=== PATIENT | male | born 1985 | race Caucasian/White ===

== ENCOUNTER 2021-01-06 21:00 | Emergency (ER) | payer BC ==
[2021-01-06 21:24] VITALS: BP 145/75
--- NOTE | 2021-01-06 21:38 | ED General ---
General Stated Complaint: BUMP ON BACK OF LEG Source of Information: Patient Exam Limitations: No Limitations History of Present Illness Date Seen by Provider: Jan 06, 2021 Time Seen by Provider: 21:36 Initial Comments To ER with reports of a bump on the buttock. Is been there for about 4 or 5 days. It hurts to cough or sneeze or strain for a bowel movement. He thought it was a hemorrhoid. He had a fever up to 100.6 here. Timing/Duration: 1-2 Days Severity: Moderate Associated Systoms: Fever/Chills Allergies and Home Medications Allergies Coded Allergies: No Known Drug Allergies (Unverified , 01/06/21) Patient Home Medication List Home Medication List Reviewed: Yes Review of Systems Review of Systems Constitutional: see HPI EENTM: see HPI Respiratory: no symptoms reported Cardiovascular: no symptoms reported Genitourinary: no symptoms reported Musculoskeletal: no symptoms reported Skin: no symptoms reported Psychiatric/Neurological: No Symptoms Reported Hematologic/Lymphatic: No Symptoms Reported Immunological/Allergic: no symptoms reported Physical Exam Vital Signs Capillary Refill : Height, Weight, BMI Height: '" Weight: lbs. oz. kg; BMI Method: General Appearance: No Apparent Distress, WD/WN Eyes: Bilateral Eye Normal Inspection, Bilateral Eye PERRL, Bilateral Eye EOMI Respiratory: No Accessory Muscle Use, No Respiratory Distress Cardiovascular: Regular Rate, Rhythm, Normal Peripheral Pulses Gastrointestinal: Normal Bowel Sounds, Non Tender, Soft Genital/Rectal: Other (There is a left-sided perianal abscess) Extremity: Normal Capillary Refill, Normal Inspection Neurologic/Psychiatric: Alert, Oriented x3 Skin: Normal Color, Warm/Dry Progress/Results/Core Measures Suspected Sepsis SIRS Temperature: Pulse: Respiratory Rate: Laboratory Tests 01/06/21 21:35: White Blood Count 11.5H Blood Pressure / Mean: Laboratory Tests 01/06/21 21:35: Creatinine 1.09, Platelet Count 249 Results/Orders Lab Results Laboratory Tests Test 01/06/21 21:35 Range/Units White Blood Count 11.5 H 4.3-11.0 10^3/uL Red Blood Count 4.35 4.30-5.52 10^6/uL Hemoglobin 13.1 L 13.3-17.7 g/dL Hematocrit 39 L 40-54 % Mean Corpuscular Volume 90 80-99 fL Mean Corpuscular Hemoglobin 30 25-34 pg Mean Corpuscular Hemoglobin Concent 34 32-36 g/dL Red Cell Distribution Width 12.8 10.0-14.5 % Platelet Count 249 130-400 10^3/uL Mean Platelet Volume 9.8 9.0-12.2 fL Immature Granulocyte % (Auto) 0 % Neutrophils (%) (Auto) 76 H 42-75 % Lymphocytes (%) (Auto) 15 12-44 % Monocytes (%) (Auto) 8 0-12 % Eosinophils (%) (Auto) 1 0-10 % Basophils (%) (Auto) 0 0-10 % Neutrophils # (Auto) 8.7 H 1.8-7.8 10^3/uL Lymphocytes # (Auto) 1.7 1.0-4.0 10^3/uL Monocytes # (Auto) 0.9 0.0-1.0 10^3/uL Eosinophils # (Auto) 0.2 0.0-0.3 10^3/uL Basophils # (Auto) 0.1 0.0-0.1 10^3/uL Immature Granulocyte # (Auto) 0.0 0.0-0.1 10^3/uL Sodium Level 140 135-145 MMOL/L Potassium Level 4.1 3.6-5.0 MMOL/L Chloride Level 103 98-107 MMOL/L Carbon Dioxide Level 24 21-32 MMOL/L Anion Gap 13 5-14 MMOL/L Blood Urea Nitrogen 26 H 7-18 MG/DL Creatinine 1.09 0.60-1.30 MG/DL Estimat Glomerular Filtration Rate 77 BUN/Creatinine Ratio 24 Glucose Level 108 H 70-105 MG/DL Calcium Level 9.2 8.5-10.1 MG/DL My Orders Orders - LYNN SHANNON GL[employer] BONE Cbc With Automated Diff (01/06/21 21:33) Basic Metabolic Panel (01/06/21 21:33) Ed Iv/Invasive Line Start (01/06/21 21:33) Wound Culture (01/06/21 21:33) Ceftriaxone (Rocephin) (01/06/21 21:45) Metronidazole Tablet (Flagyl Tablet) (01/06/21 21:45) Rx-Hydrocodone/Apap 5-325 Mg (Rx-Vicodin (01/06/21 21:45) Fentanyl Inj (Sublimaze Injection) (01/06/21 21:45) Lidocaine 1% Inj 20 Ml (Xylocaine 1% Inj (01/06/21 21:45) Medications Given in ED Current Medications Medications Dose Ordered Sig/Yi Route Start Time Stop Time Status Last Admin Dose Admin Acetaminophen/ Hydrocodone Bitart 1 ea Q4H PRN PO 01/06/21 21:45 01/06/21 21:47 1 EA Ceftriaxone Sodium 1000 mg/ Sterile Water 10 ml @ 200 mls/hr ONCE ONCE IV 01/06/21 21:45 01/06/21 21:47 DC 01/06/21 21:46 200 MLS/HR Fentanyl Citrate 50 mcg ONCE ONCE IVP 01/06/21 21:45 01/06/21 21:46 DC 01/06/21 21:47 50 MCG Lidocaine HCl 20 ml ONCE ONCE INJ 01/06/21 21:45 01/06/21 21:46 DC 01/06/21 21:47 20 ML Metronidazole 500 mg ONCE ONCE PO 01/06/21 21:45 01/06/21 21:46 DC 01/06/21 21:47 500 MG Vital Signs/I&O Capillary Refill : Departure Communication (Admissions) 2204-incision and drainage was done with [employer] at the bedside. This was a perianal abscess. We anesthetized locally with 1% lidocaine buffered with sodiu m bicarb. This was then swabbed with Betadine swab. Then used an 11 blade scalpel and a very large amount of foul-smelling purulent material was expressed and collected with suction tubing. This was not packed. Impression Primary Impression: Perianal abscess Disposition: HOME, SELF-CARE Condition: Stable Departure-Patient Inst. Decision time for Depature: 21:37 Referrals: DANTE DORMAN BRETT D DO KIDO, TAKAAKI MD Patient Instructions: Anal Abscess and Fistula Add. Discharge Instructions: 1. You can shower letting water run over this. Pain medication and antibiotics as directed. Follow-up with your family doctor next week Scripts Hydrocodone/Acetaminophen (Hydrocodone-Acetamin 5-325 mg) 1 Each Tablet 1 TAB PO Q4H PRN for PAIN-MODERATE (5-7), #10 TAB Prov: LYNN SHANNON APRN 01/06/21 Metronidazole (Flagyl) 500 Mg Tablet 500 MG PO TID, #21 TAB Prov: LYNN SHANNON APRN 01/06/21 Ciprofloxacin HCl (Ciprofloxacin HCl) 500 Mg Tablet 500 MG PO BID, #14 TAB Prov: LYNN SHANNON APRN 01/06/21 LYNN SHANNON APRN Jan 06, 2021 21:38
[2021-01-06 21:45] LABS: BASOPHILS # (AUTO) 0.1 10^3/uL (0.0-0.1); BASOPHILS % (AUTO) 0 % (0-10); EOSINOPHILS # (AUTO) 0.2 10^3/uL (0.0-0.3); EOSINOPHILS % (AUTO) 1 % (0-10); HEMATOCRIT 39 % (40-54); HEMOGLOBIN 13.1 g/dL (13.3-17.7); LYMPHOCYTES # (AUTO) 1.7 10^3/uL (1.0-4.0); LYMPHOCYTES % (AUTO) 15 % (12-44); MEAN CORPUSCULAR HEMOGLOBIN 30 pg (25-34); MEAN CORPUSCULAR HGB CONC 34 g/dL (32-36); MEAN CORPUSCULAR VOLUME 90 fL (80-99); MEAN PLATELET VOLUME 9.8 fL (9.0-12.2); MONOCYTES # (AUTO) 0.9 10^3/uL (0.0-1.0); MONOCYTES % (AUTO) 8 % (0-12); NEUTROPHILS # (AUTO) 8.7 10^3/uL (1.8-7.8); NEUTROPHILS % (AUTO) 76 % (42-75); PLATELET COUNT 249 10^3/uL (130-400); WHITE BLOOD COUNT 11.5 10^3/uL (4.3-11.0)
[2021-01-06] MEDS ORDERED: metroNIDAZOLE 500 MG (FLAGYL) TAB PO ONE (21:45)
[2021-01-06] MEDS ORDERED: LIDOCAINE 1% INJ 20 ML 20 ML VIAL INJ ONE (21:45)
[2021-01-06] MEDS ORDERED: fentaNYL INJ 100 MCG/2 ML AMP IVP ONE (21:45)
[2021-01-06] MEDS ORDERED: cefTRIAXone 1,000 MG in WATER (STERILE) FOR INJECTION 10 ML IV ONE (21:45)
[2021-01-06 21:54] LABS: POTASSIUM 4.1 MMOL/L (3.6-5.0)
[2021-01-06 21:56] LABS: CALCIUM 9.2 MG/DL (8.5-10.1)
[2021-01-06 22:00] LABS: CREATININE SERUM 1.09 MG/DL (0.60-1.30)
[2021-01-06] MEDS ORDERED: CIPR500T5 PO (22:06)
[2021-01-06] MEDS ORDERED: METR500T PO (22:06)
[2021-01-06] MEDS ORDERED: ACHD5005 PO (22:06)
== END 2021-01-06 22:18 | disposition home or self-care (01) ==
LOC: ER 21:08
DX: K61.0 Anal abscess (principal)
CPT/HCPCS: 36415; 46050; 80048; 85025; 87070; 87077; 87186; 87205

== ENCOUNTER 2021-02-20 20:44 | Emergency (ER) | payer BC ==
[~2021-02-20] VITALS: Ht 160 cm; Wt 89.4 kg
[~2021-02-20 20:44] MED LIST: ACHD5005 PO; CIPR500T5 PO; METR500T PO
[2021-02-20] MEDS ORDERED: KETOROLAC 60 MG/2 ML VIAL IM ONE (21:15)
--- NOTE | 2021-02-20 21:17 | ED Lower Extremity ---
General Stated Complaint: LEFT FOOT/HEEL PAIN Source: patient Exam Limitations: no limitations History of Present Illness Date Seen by Provider: Feb 20, 2021 Time Seen by Provider: 20:54 Initial Comments Patient to the ER by private conveyance with chief complaint that he reinjured his foot and having pain in the left base of his heel today after pulling some wire out. 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 About 2 months ago when he was in [place] he fell about 2-1/2 feet and landed on his left foot rolled inwards which caused him pain. When he went home to [place] he saw his family doctor who shot a picture but did not put him on any pain medicines, steroids or restrictions. He was referred to a crotch piece baster to be seen on the but because he had to work for his days off he did not go to that appointment. He says it was getting better until today. Now he has quite a bit of pain, 7 out of 10 to standing on it. No numbness or tingling. Allergies and Home Medications Allergies Coded Allergies: No Known Drug Allergies (Unverified , 01/06/21) Patient Home Medication List Home Medication List Reviewed: Yes Ciprofloxacin HCl (Ciprofloxacin HCl) 500 Mg Tablet, 500 MG PO BID Prescribed by: LYNN SHANNON on 01/06/212205 Hydrocodone/Acetaminophen (Hydrocodone-Acetamin 5-325 mg) 1 Each Tablet, 1 TAB PO Q4H PRN for PAIN-MODERATE (5-7) Prescribed by: LYNN SHANNON on 01/06/212206 Metronidazole (Flagyl) 500 Mg Tablet, 500 MG PO TID Prescribed by: LYNN SHANNON on 01/06/212205 Naproxen (Naprosyn) 500 Mg Tablet, 500 MG PO BID Prescribed by: JONY DAVIS on 02/20/212157 Review of Systems Constitutional: No chills, No fever, No malaise EENTM: No ear discharge, No ear pain Respiratory: No cough, No short of breath Cardiovascular: No chest pain, No edema Gastrointestinal: No abdominal pain, No nausea, No vomiting Genitourinary: No discharge, No dysuria Musculoskeletal: see HPI; No back pain; joint pain Psychiatric/Neurological: Denies Anxiety, Denies Depressed All Other Systems Reviewed Negative Unless Noted: Yes Past Vqbautu-[id number]-Koowfr Hx Patient Social History Tobacco Use?: No Use of E-Cig and/or Vaping dev: No Physical Exam Vital Signs Vital Signs - First Documented 02/20/21 21:06 Temp 36.3 Pulse 93 Resp 18 B/P (MAP) 138/95 (109) Pulse Ox 98 O2 Delivery Room Air Capillary Refill : Height, Weight, BMI Height: '" Weight: lbs. oz. kg; BMI Method: General Appearance: WD/WN, mild distress HEENT: PERRL/EOMI, pharynx normal Neck: full range of motion, supple, normal inspection Cardiovascular: normal peripheral pulses, regular rate, rhythm Respiratory: no respiratory distress, no accessory muscle use Knees: bilateral knee non-tender, bilateral knee normal inspection, bilateral knee normal range of motion Ankles: bilateral ankle non-tender, bilateral ankle normal inspection, bilateral ankle normal range of motion Feet: right foot non-tender; bilateral foot normal inspection, bilateral foot normal range of motion; right foot no evidence of injury; left foot bone tendern ess (Inferior portion of the left calcaneus tender to palpation without deformity, swelling or erythema) Neurologic/Psychiatric: no motor/sensory deficits, alert, normal mood/affect Skin: normal color, warm/dry Progress/Results/Core Measures Results/Orders My Orders Orders - JONY DAVIS Foot, Left, 3 Views (02/20/21 21:10) Ketorolac Injection (Toradol Injection) (02/20/21 21:15) Medications Given in ED Current Medications Medications Dose Ordered Sig/Yi Route Start Time Stop Time Status Last Admin Dose Admin Ketorolac Tromethamine 60 mg ONCE ONCE IM 02/20/21 21:15 02/20/21 21:16 DC 02/20/21 21:21 60 MG Vital Signs/I&O 02/20/21 21:06 Temp 36.3 Pulse 93 Resp 18 B/P (MAP) 138/95 (109) Pulse Ox 98 O2 Delivery Room Air Progress Progress Note : Time: 21:14 Progress Note Toradol for pain. Probably recommend some restrictions. Plain films. We will put him on naproxen 500 twice daily for 2 weeks. Diagnostic Imaging Diagonstic Imaging: Xray Plain Films/CT/US/NM/MRI: other (Left foot 2-3 views) Comments [facility] [place] [place] NAME: ERIC QUIROS I MED REC#: [id number] PT STATUS: REG ER : 1985 PHYSICIAN: JONY DAVIS MD ADMIT DATE: 02/20/21/ER Draft Date of Exam:02/20/21 FOOT, LEFT, 3 VIEWS EXAM: Left foot radiograph. EXAM DATE: 02/20/2021. COMPARISON: None. HISTORY: Left foot pain. TECHNIQUE: Three views of the left foot. FINDINGS: There is no acute fracture, dislocation or destructive osseous process. Joint spaces are normal. The soft tissues are normal. There is a small anterior calcaneal enthesophyte. IMPRESSION: No acute osseous abnormality of the left foot. Dictated on workstation # [id number] Dict: 02/20/212123 Trans: 02/20/212126 [facility] [id number] Interpreted by: DAVON CHAUDHARY DO Electronically signed by: Reviewed: Reviewed by Me Departure Impression Primary Impression: Bone spur of foot Additional Impression: Plantar fascia syndrome Disposition: HOME, SELF-CARE Condition: Stable Departure-Patient Inst. Decision time for Depature: 21:15 Referrals: NO,LOCAL PHYSICIAN (PCP) Primary Care Physician DOT NELSON DPM Patient Instructions: Heel Pain Caused by Plantar Fasciitis (DC) Add. Discharge Instructions: Naproxen 500 mg twice a day for the next 2 weeks. Tylenol 1000 mg every 8 hours as necessary for breakthrough pain. Topical creams are okay. Elevate your foot when not in use. Do somewhat walking on your foot you have to do for the next 3 days. Get a soup can or can of vegetables and roll it back and forth under your foot for 5 times a day especially when you first get up and before you go to bed to stretch out the plantar fascia and associated ligaments. Follow-up with your crotch piece baster by calling for another appointment. Scripts Naproxen (Naprosyn) 500 Mg Tablet 500 MG PO BID for 14 Days, #30 TAB 0 Refills Prov: JONY DAVIS 02/20/21 Work/School Note: Work Release Form Date Seen in the Emergency Department: Feb 20, 2021 Return to Work: Feb 21, 2021 Restrictions: Need Release from Doctor Other Restrictions Listed Below: Minimize walking on left foot until 02/24/2021. Copy Copies To 1: DOT NELSON DPM, TITUS J Feb 20, 2021 21:17
--- NOTE | 2021-02-20 21:27 | Diagnostic Imaging Report ---
EXAM: Left foot radiograph. EXAM DATE: 02/20/2021. COMPARISON: None. HISTORY: Left foot pain. TECHNIQUE: Three views of the left foot. FINDINGS: There is no acute fracture, dislocation or destructive osseous process. Joint spaces are normal. The soft tissues are normal. There is a small anterior calcaneal enthesophyte. IMPRESSION: No acute osseous abnormality of the left foot. Dictated by: Dictated on workstation # [id number]
[2021-02-20] MEDS ORDERED: NAPR-1071 PO (21:58)
[2021-02-20 22:03] VITALS: BP 138/95
== END 2021-02-20 22:03 | disposition home or self-care (01) ==
LOC: EDUNIT# 20:44 → ER 20:46
DX: M77.8 Other enthesopathies, not elsewhere classified (principal); M72.2 Plantar fascial fibromatosis
CPT/HCPCS: 73630